=== PATIENT | male | born 1995 | race African-American/Black ===

== ENCOUNTER 2020-12-24 02:47 | Emergency (ER) | payer OTHER | END 2020-12-24 03:41 | disposition home or self-care (01) | LOC: FER 02:47 | DX: L02.31 Cutaneous abscess of buttock (principal); F17.210 Nicotine dependence, cigarettes, uncomplicated | CPT/HCPCS: 93005 ==

== ENCOUNTER 2021-02-16 04:26 | Emergency (ER) | payer OTHER | END 2021-02-16 07:12 | disposition home or self-care (01) | LOC: FER 04:26 | DX: F20.9 Schizophrenia, unspecified (principal); F11.10 Opioid abuse, uncomplicated; I10 Essential (primary) hypertension; F17.200 Nicotine dependence, unspecified, uncomplicated; Z88.0 Allergy status to penicillin; Z79.899 Other long term (current) drug therapy | CPT/HCPCS: 93005 ==